=== PATIENT | female | born 1995 | race African-American/Black ===

== ENCOUNTER 2019-06-30 22:13 | Emergency (ER) | payer MEDICAID, OTHER ==
[~2019-06-30] VITALS: Ht 167.6 cm; Wt 80.0 kg
[2019-06-30 22:16] VITALS: BP 125/89
== END 2019-06-30 22:46 | disposition left against medical advice (07) ==
LOC: ER 22:13
DX: R06.02 Shortness of breath (principal); Z53.21 Procedure and treatment not carried out due to patient leaving prior to being seen by health care provider

== ENCOUNTER 2022-08-30 14:23 | Emergency (ER) | payer MEDICAID, MEDICARE | END 2022-08-30 16:00 | disposition left against medical advice (07) | LOC: ER 15:45 | DX: Z53.21 Procedure and treatment not carried out due to patient leaving prior to being seen by health care provider (principal) | CPT/HCPCS: 99281 ==

== ENCOUNTER 2023-08-07 10:07 | Emergency (ER) | payer MEDICAID, MEDICARE ==
[~2023-08-07] VITALS: Ht 160 cm; Wt 93.0 kg
[2023-08-07 10:12] VITALS: O2SAT 100
[2023-08-07] MEDS: SODIUM CHLORIDE 0.9% 1,000 ML IV ONE (11:09)
[2023-08-07 11:25] LABS: CHLORIDE 106 mEq/L (98-107)
[2023-08-07 11:26] LABS: SODIUM 138 mEq/L (136-145)
[2023-08-07 11:27] LABS: CALCIUM 9.1 mg/dL (8.7-10.4); CARBON DIOXIDE 25 mEq/L (21-32)
[2023-08-07 11:32] LABS: CREATININE 0.5 mg/dL (0.6-1.0); GLUCOSE 84 mg/dL (70-105); UREA NITROGEN BLOOD 9 mg/dL (9-23)
[2023-08-07 11:34] LABS: ALANINE AMINOTRANSFERASE 15 IU/L (10-49); ASPARTATE AMINOTRANSFERASE 16 IU/L (<34); BILIRUBIN DIRECT 0.1 mg/dL (<=3.0); BILIRUBIN TOTAL 0.5 mg/dL (0.1-1.0)
[2023-08-07 11:35] LABS: PROTEIN TOTAL 6.9 g/dL (6.0-8.3)
[2023-08-07 12:24] LABS: BASOPHILS % 0.4 % (0.0-2.0); EOSINOPHILS % 1.3 % (0.0-5.0); HEMATOCRIT. 36.8 % (36.0-48.0); HEMOGLOBIN. 12.7 g/dL (12.0-16.0); LYMPHOCYTES % 20.5 % (20.0-50.0); MEAN CORPUSCULAR HEMOGLOBIN 31.9 pg (28.0-32.0); MEAN CORPUSCULAR HGB CONC 34.6 g/dL (31.0-37.0); MEAN CORPUSCULAR VOLUME 92.2 fL (81.0-99.0); MEAN PLATELET VOLUME 8.9 fl (7.4-10.4); MONOCYTES % 4.9 % (2.0-8.0); NEUTROPHILS % 72.9 % (40.0-76.0); PLATELET 349 x1000/uL (130-400); RED BLOOD CELL COUNT 3.99 mill/uL (4.2-5.4); RED CELL DISTRIBUTION WIDTH 12.6 % (11.6-14.6); WHITE BLOOD COUNT 10.4 x1000/uL (4.5-11.0)
[2023-08-07 12:45] VITALS: BP 120/82; PULSE 82; RESP 18; TEMP 98.5
[2023-08-08 17:28] LABS: CLARITY URINE CLEAR (CLEAR); COLOR URINE YELLOW (YELLOW); GLUCOSE URINE NEGATIVE (NEGATIVE); KETONES URINE TRACE (NEGATIVE); LEUKOCYTE ESTERASE URINE NEGATIVE (NEGATIVE); NITRITE URINE NEGATIVE (NEGATIVE); OCCULT BLOOD URINE NEGATIVE (NEGATIVE); PROTEIN URINE NEGATIVE (NEGATIVE); SPECIFIC GRAVITY URINE 1.023 (1.005-1.030); UROBILINOGEN URINE 0.2 E.U./dL (0.2-1.0)
== END 2023-08-07 13:13 | disposition home or self-care (01) ==
LOC: ER 10:07
DX: O26.891 Other specified pregnancy related conditions, first trimester (principal); R42 Dizziness and giddiness; Z3A.13 13 weeks gestation of pregnancy
CPT/HCPCS: 80076; 80048; 82962; 84702; 85025; 86850; 86870; 86900; 86901; 36415; 76801; 76817; 93005; 96360; 99284; J7030; Z7610